=== PATIENT | female | born 1965 | race Caucasian/White ===

== ENCOUNTER 2022-05-28 13:40 | Outpatient (REF) | payer MEDICARE, SELFPAY ==
[2022-05-28 15:11] LABS: C Reactive Protein 0.37 mg/dL (< or = 0.50)
[2022-05-28 15:29] LABS: Erythrocyte Sedimentation Rate 18 MM/HR (0-20)
[2022-05-30 10:02] LABS: Lyme Abs Screen <0.90 index
[2022-05-30 11:46] LABS: Anti Nuclear Antibody Screen NEGATIVE (NEGATIVE)
== END 2022-05-28 13:41 | disposition home or self-care (01) ==
LOC: HO.LAB 13:40
PROVIDERS: PCP Internal Medicine; Visit Provider Psychiatry & Neurology Neurology
DX: G35 Multiple sclerosis (principal)
CPT/HCPCS: 36415; 85652; 86038; 86039; 86140; 86617; 86618